=== PATIENT | female | born 1965 | race African-American/Black ===

== ENCOUNTER 2017-02-07 07:18 | Outpatient (CLI) | payer BC ==
[2017-02-07 07:29] LABS: Basophils % (Auto) 0.8 % (0.0-1.8); Eosinophils % (Auto) 4.1 % (0.0-4.3); Hematocrit 30.2 % (30.3-42.9); Hemoglobin 9.7 gm/dl (10.1-14.3); Mean Corpuscular HGB Conc 32 % (30-34); Mean Corpuscular Hemoglobin 29 pg (28-32); Mean Corpuscular Volume 90 fl (79-97); Platelet Count 260 K/mm3 (140-440); Red Blood Count 3.35 M/mm3 (3.65-5.03); Red Cell Distribution Width 12.6 % (13.2-15.2); White Blood Count 5.8 K/mm3 (4.5-11.0)
[2017-02-07 08:40] LABS: Alanine Aminotransferase 32 units/L (7-56); Albumin 3.4 g/dL (3.9-5); Albumin/Globulin Ratio 1.4 %; Alkaline Phosphatase 73 units/L (35-129); Anion Gap 17 mmol/L; Bilirubin,Total < 0.2 mg/dL (0.1-1.2); Blood Urea Nitrogen 9 mg/dL (7-17); Calcium 7.9 mg/dL (8.4-10.2); Carbon Dioxide 22 mmol/L (22-30); Chloride 104.8 mmol/L (98-107); Glucose 83 mg/dL (65-100); Potassium 3.8 mmol/L (3.6-5.0); Sodium 140 mmol/L (137-145); Total Protein 5.9 g/dL (6.3-8.2)
== END 2017-02-07 07:19 | disposition home or self-care (01) ==
LOC: LAB 07:18
PROVIDERS: ATTEND Internal Medicine
DX: R53.81 Other malaise (principal); R53.83 Other fatigue
CPT/HCPCS: 36415; 80053; 84443; 85025

== ENCOUNTER 2017-02-20 10:26 | Outpatient (CLI) | payer BC ==
[2017-02-20] MEDS ORDERED: NACL ONE (10:46)
[2017-02-20 11:27] LABS: Basophils % (Auto) 0.7 % (0.0-1.8); Eosinophils % (Auto) 3.3 % (0.0-4.3); Hemoglobin 11.4 gm/dl (10.1-14.3); Mean Corpuscular HGB Conc 32 % (30-34); Mean Corpuscular Hemoglobin 30 pg (28-32); Mean Corpuscular Volume 93 fl (79-97); Platelet Count 256 K/mm3 (140-440); Red Blood Count 3.85 M/mm3 (3.65-5.03); Red Cell Distribution Width 16.3 % (13.2-15.2); Reticulocyte % 2.27 % (0.78-2.58); White Blood Count 6.1 K/mm3 (4.5-11.0)
[2017-02-20 11:40] LABS: Alanine Aminotransferase 19 units/L (7-56); Albumin 3.9 g/dL (3.9-5); Albumin/Globulin Ratio 1.5 %; Alkaline Phosphatase 74 units/L (35-129); Anion Gap 16 mmol/L; Blood Urea Nitrogen 12 mg/dL (7-17); Calcium 8.3 mg/dL (8.4-10.2); Carbon Dioxide 23 mmol/L (22-30); Chloride 101.7 mmol/L (98-107); Cholesterol 149 mg/dL (50-199); Glucose 84 mg/dL (65-100); HDL Cholesterol 43 mg/dL (40-59); Iron 49 ug/dL (37-170); LDL Cholesterol,Direct 89 mg/dL (50-130); Potassium 4.1 mmol/L (3.6-5.0); Sodium 137 mmol/L (137-145); Total Iron Binding Capacity 322 mcg/dL (250-450); Total Protein 6.5 g/dL (6.3-8.2); Triglycerides 88 mg/dL (2-149)
--- NOTE | 2017-02-20 12:53 | Cat Scan Report ---
CT NECK WITH CONTRAST INDICATION: Left-sided neck mass. COMPARISON: 02/17/2009. FINDINGS: Neck CT performed following IV contrast. Axial, sagittal and coronal reconstructions obtained. Area of concern along the left neck surface marked with stable subjacent sternocleidomastoid muscle, few superficial vessels and a subcentimeter possible lymph node as on axial image 110, series 2. Normal salivary glands with few small cervical lymph nodes. Normal pharynx, hypopharynx and the larynx. Streak artifact from multiple radiopaque dental material limits exam. Some dental disease on the right suspected. Clear imaged paranasal sinuses and mastoid air cells. Slight nasal septal bowing towards the left. Stable old nasal bone deformity. Normal eye globes and imaged intracranial appearance. Normal thyroid size with stable 0.6 cm hypodensity on the right while approximately 1.3 x 0.6 cm hypodensity on the left anteromedially as on axial image 146, series 2 is new/larger. Clear imaged lung bases. Mild spinal degenerative changes. CONCLUSION: No suspicious CT abnormality in the area of concern along the left neck identified with various other incidental findings, as above. Please correlate. Thank you for the opportunity to participate in this patient's care.
== END 2017-02-20 10:27 | disposition home or self-care (01) ==
LOC: CT 10:26
PROVIDERS: ATTEND Internal Medicine
DX: Z00.01 Encounter for general adult medical examination with abnormal findings (principal); D64.9 Anemia, unspecified; R22.1 Localized swelling, mass and lump, neck; E55.9 Vitamin D deficiency, unspecified; M47.899 Other spondylosis, site unspecified
CPT/HCPCS: 36415; 70491; 80053; 80061; 82306; 82607; 82728; 82747; 83550; 84443; 85025; 85045; Q9967